=== PATIENT | male | born 1955 | race Caucasian/White ===

== ENCOUNTER 2020-04-19 17:25 | Emergency (ER) | payer SELFPAY ==
[2020-04-19 17:42] VITALS: BP 117/72; PULSE 73; TEMP 97.6; BMI 27.4
--- NOTE | 2020-04-19 18:12 | PDOC ---
History of Present Illness - General Chief Complaint: Alcohol intoxication Stated Complaint: DETOX Time Seen by Provider: 04/19/20 18:12 Past History - Medical History Allergies/Adverse Reactions: Allergies Allergy/AdvReac Type Severity Reaction Status Date / Time No Known Allergies Allergy Verified 04/19/20 17:37 - Psycho-Social/Smoking History Smoking History: Never smoked Have you smoked in the past 12 months: No - Substance Abuse Hx (Audit-C & DAST Scrn) How often the patient has a drink containing alcohol: 4 0r more times/wk Number of drinks the patient has on a typical day: 3 or 4 How often the patient has six or more drinks on one occasion: Daily or almost daily Score: In Men: 4 or > Positive; In Women: 3 or > Positive: 9 Screen Result (Pos requires Nsg. Audit-10AR): Positive In the last yr the pt used illegal drug/Rx for NonMed reason: No Score: Yes response is considered Positive: 0 Screen Result (Positive result requires Nsg. DAST-10): Negative *Physical Exam - Vital Signs Last Vital Signs Temp Pulse Resp BP Pulse Ox 97.6 F 73 16 117/72 100 04/19/20 17:38 04/19/20 17:38 04/19/20 17:38 04/19/20 17:38 04/19/20 17:38 ED Treatment Course - LABORATORY CBC & Chemistry Diagram: 04/19/20 18:50 04/19/20 18:50 Medical Decision Making - Medical Decision Making 04/19/20 18:35 HPI: 65yo M hx alcohol abuse, no other PMH (but hasn't been to a doctor in years), presents from home requesting detox from alcohol. Endorses 3 pints vodka a day since August 2019, last drink wednesday. Since then, endorses worsening anxiety, tremors, difficult sleeping, depression, nausea with morning emesis, tingling skin, mild headache in mornings. Denies SI/HI/AVH, seizure, smoking, drug use. Pt in USOH prior to withdrawal. Denies F/C, CP, SOB, cough, sick contacts, travel, leg swelling or pain, abdominal pain, D/C, blood in stool or vomit. Endorses frequent falls 2/2 etoh abuse, last 5 days ago hit head no LOC. Last withdrawal/detox last year, took librium at that time, denies hx withdrawal seizures. PCP - none ROS: Constitutional: Positive for tremors. Negative for chills, fever, fatigue, diaphoresis. HENT: Negative for sore throat, rhinorrhea, congestion. Eyes: Negative for visual disturbance. Respiratory: Negative for shortness of breath, cough, and wheezing. Cardiovascular: Negative for chest pain, palpitations, and leg swelling. Gastrointestinal: Positive for nausea and vomiting. Negative for abdominal pain, blood in stool, constipation, diarrhea, nausea. Genitourinary: Negative for dysuria, flank pain, and hematuria. Musculoskeletal: Negative for myalgias, back pain, and neck pain. Skin: Negative for rash. Neurological: Positive for headache and tingling skin and difficulty sleeping. Negative for light-headedness, dizziness, vertigo, syncope, weakness, numbness. Psychiatric/Behavioral: Positive for anxiety, depression, and alcohol abuse/withdrawal. Negative for SI/HI/AVH or confusion. PE: Gen: Alert, NAD, anxious-appearing, mild tremors at rest HEENT: PERRL, EOMI, MMM, NC, healing bruise to R forehead, no tongue fasciculations. No conjunctival pallor. Sclera are non-icteric. Oropharynx is clear. CV: Regular rate and rhythm. No murmurs, rubs, or gallops. PULM: No resp distress. CTAB, no wheezes, rales, or rhonchi. ABD: soft, NT/ND, no rebound tenderness or guarding, no CVA tenderness. BACK: No TTP of c/t/l-spine. No step-offs or deformities. MSK: No bony deformities. 2+ pulses in all extremities. NEURO: AAOx3. PERRL. No gross CN deficits. Strength and sensation grossly intact throughout. EXTREMITIES: No cyanosis. No clubbing. No edema. No calf tenderness. PSYCH: Normal mood and thought pattern. SKIN: Warm and dry, barely perceptible sweating to face. Normal capillary refill. No rashes. No jaundice. MDM: 65yo M hx alcohol abuse, no other PMH (but hasn't been to a doctor in years), presents from home requesting detox from alcohol. Hemodynamically stable, afebrile, neurologically intact. Ddx: history and exam c/w withdrawal from alcohol. Also consider intox, infection, metabolic derangement, anemia, or ICH due trauma. CIWA score 15 -Librium 50 -cbc,cmp,alcohol -CTH -IVF and banana bag -Dispo: pending w/u, likely d/c to [facility] detox 04/19/20 20:56 Labs reviewed. No concerning findings. Pt feels better. 04/19/20 21:15 CTH negative for acute pathology Safe for d/c to detox facility with PCP f/u. Return precautions given. Pt understands all discharge instructions and all questions were answered. Discharge - Discharge Information Problems reviewed: Yes Clinical Impression/Diagnosis: Alcohol withdrawal Condition: Improved Disposition: HOME - Admission No - Follow up/Referral Referrals: [facility] [place] [facility] [place] [Provider Group] - Patient Discharge Instructions Patient Printed Discharge Instructions: DI for Alcohol Use Disorder, DI for Drug or Alcohol Withdrawal Additional Instructions: You have been seen in the Emergency Department for your alcohol withdrawal. You feel better with Librium. Your physical exam, labs, and CT scan of your head noemí w no signs of an emergent condition at this time. You are safe to go to a detox facility. Good luck on your recovery! Make sure to follow-up with your primary care doctor within 1 week. We have given you a referral to our primary care clinic - give them a call to set up an appointment. Return to the ED immediately if you experience seizures, chest pain, difficulty breathing, passing out, or any other new or worsening symptom. - Post Discharge Activity
[2020-04-19] MEDS ORDERED: chlordiazePOXIDE HCL 25 MG CAPSULE PO ONE (18:33)
[2020-04-19] MEDS ORDERED: chlordiazePOXIDE HCL 25 MG CAPSULE ONE (19:03)
[2020-04-19] MEDS ORDERED: FOLIC ACID INJECTION - 1 MG, THIAMINE HCL 100 MG, MULTIVIT INJECTION ADULT 10 ML in SOD... IVPB ONE (19:07)
[2020-04-19] MEDS ORDERED: SODIUM CHLORIDE 0.9% 500 ML INFUS.BAG IV ONE (19:07)
--- NOTE | 2020-04-19 19:09 | PDOC ---
Documentation entered by Holly Mendenhall SCRIBE, acting as scribe for Tequila Mondragon MD. Tequila Mondragon MD: This documentation has been prepared by the Abdirashid murphy Xhesika, SCRIBE, under my direction and personally reviewed by me in its entirety. I confirm that the documentation accurately reflects all work, treatment, procedures, and medical decision making performed by me. Attending Attestation - Resident Resident Name: Latricia López - HPI HPI: 04/19/20 18:37 The patient is a 65y/o M with a pmh of alcohol abuse (3 pints vodka a day since August) who presents to the ED for alcohol intoxication. Pt reports tremors, difficulty sleeping, nausea a/w emesis and mild headache this morning. Pt states his last drink was Wednesday (5 days ago). Pt reports he had a fall 5 days ago secondary to etoh abuse. Pt denies CP, sob, fevers, chills. Denies URI symptoms. Allergies: NKDA - Physicial Exam PE: 04/19/20 19:06 Agree with resident exam. Patient is alert and in no acute distress. Calm and cooperative, speaking in complete sentences. No diaphoresis or tachycardia. + mild tremor. - Medical Decision Making 04/19/20 19:07 Pt presents to the ED complaining of mild alcohol withdrawal. Will check labs and treat with libruim. Will likely discharge to [facility]. Discharge - Discharge Information Problems reviewed: Yes Clinical Impression/Diagnosis: Alcohol withdrawal Condition: Improved Disposition: HOME - Follow up/Referral [place] [facility] [place] Group] - Patient Discharge Instructions Patient Printed Discharge Instructions: DI for Alcohol Use Disorder, DI for Drug or Alcohol Withdrawal Additional Instructions: You have been seen in the Emergency Department for your alcohol withdrawal. You feel better with Librium. Your physical exam, labs, and CT scan of your head show no signs of an emergent condition at this time. You are safe to go to a detox facility. Good luck on your recovery! Make sure to follow-up with your primary care doctor within 1 week. We have given you a referral to our primary care clinic - give them a call to set up an appointment. Return to the ED immediately if you experience seizures, chest pain, difficulty breathing, passing out, or any other new or worsening symptom. - Post Discharge Activity
[2020-04-19 20:00] LABS: BASO % 2.8 % (0-2.0); EOS % 3.2 % (0-4.5); HEMATOCRIT 36.9 % (35.4-49); HEMOGLOBIN 12.3 GM/dL (11.7-16.9); LYMPH % 27.5 % (8-40); MCH 33.7 pg (25.7-33.7); MCHC 33.3 g/dl (32.0-35.9); MEAN CELL VOLUME 101.3 fl (80-96); MEAN PLT VOLUME 9.5 fl (7.5-11.1); MONO % 19.1 % (3.8-10.2); NEUT % 47.4 % (42.8-82.8); PLATELET COUNT 228 K/MM3 (134-434); RBC 3.65 M/mm3 (4.00-5.60); RDW 15.8 % (11.9-15.9); WHITE BLOOD COUNT 4.1 K/mm3 (4.0-10.0)
--- NOTE | 2020-04-19 20:24 | PDOC ---
*Physical Exam - Vital Signs Last Vital Signs Temp Pulse Resp BP Pulse Ox 97.6 F 73 16 117/72 100 04/19/20 17:38 04/19/20 17:38 04/19/20 17:38 04/19/20 17:38 04/19/20 17:38 ED Treatment Course - LABORATORY CBC & Chemistry Diagram: 04/19/20 18:50 04/19/20 18:50 - ADDITIONAL ORDERS Additional order review: 04/19/20 18:50 RBC 3.65 L MCV 101.3 H MCHC 33.3 RDW 15.8 MPV 9.5 Neutrophils % 47.4 Lymphocytes % 27.5 Monocytes % 19.1 H Eosinophils % 3.2 Basophils % 2.8 H - Medications Given in the ED: ED Medications Discontinued Medications Generic Name Dose Route Start Last Admin Trade Name Freq PRN Reason Stop Dose Admin Chlordiazepoxide HCl 50 mg 04/19/20 18:33 04/19/20 19:00 Librium - PO 04/19/20 18:34 50 mg ONCE ONE Administration Sodium Chloride 1,000 ml 04/19/20 19:07 04/19/20 19:37 Normal Saline - IV 04/19/20 19:08 1,000 ml ONCE ONE Administration Medical Decision Making - Medical Decision Making 04/19/20 20:24 Pt received on signout. CBC lkabs normal and chem pending Pt is awaiting CT head If normal, he has been accepted to a male detox bed in [facility]. 04/19/20 21:12 Labs normal; CT head no acute findings. Pt will go to [facility] with security Discharge - Discharge Information Problems reviewed: Yes Clinical Impression/Diagnosis: Alcohol withdrawal Condition: Improved Disposition: HOME - Follow up/Referral Referrals: [facility] [place] Internal Med at [place] [Provider Group] - Patient Discharge Instructions Patient Printed Discharge Instructions: DI for Alcohol Use Disorder, DI for Drug or Alcohol Withdrawal Additional Instructions: You have been seen in the Emergency Department for your alcohol withdrawal. You feel better with Librium. Your physical exam, labs, and CT scan of your head show no signs of an emergent condition at this time. You are safe to go to a detox facility. Good luck on your recovery! Make sure to follow-up with your primary care doctor within 1 week. We have given you a referral to our primary care clinic - give them a call to set up an appointment. Return to the ED immediately if you experience seizures, chest pain, difficulty breathing, passing out, or any other new or worsening symptom. - Post Discharge Activity
[2020-04-19 20:42] LABS: ALBUMIN 3.3 g/dl (3.4-5.0); ALK PHOS 83 U/L (45-117); ANION GAP 4 MMOL/L (8-16); BILIRUBIN,TOTAL 0.6 mg/dL (0.2-1); BLOOD UREA NITROGEN 12.6 mg/dL (7-18); CALCIUM 8.7 mg/dL (8.5-10.1); CHLORIDE 107 mmol/L (98-107); CO2 30 mmol/L (21-32); CREATININE 0.7 mg/dL (0.55-1.3); GLUCOSE,RANDOM 83 mg/dL (74-106); POTASSIUM 5.4 mmol/L (3.5-5.1); SGOT/AST 110 U/L (15-37); SGPT/ALT 130 U/L (13-61); SODIUM 141 mmol/L (136-145); TOT PROT 6.8 g/dl (6.4-8.2)
== END 2020-04-19 21:33 | disposition home or self-care (01) ==
LOC: JER 17:25
DX: F10.230 Alcohol dependence with withdrawal, uncomplicated (principal)
CPT/HCPCS: 36415; 70450-TC; 80053; 80307; 85025; 99285-25

== ENCOUNTER 2020-04-19 21:45 | Inpatient (IN) | payer SELFPAY ==
--- OUTSIDE RECORDS SUMMARY | 2020-04-19 21:51 | XMS ---
:1955 Author Organization [facility] Care Team Providers Name Role Phone MIRTA RODRIGUEZ MD Unavailable Unavailable Bansal, R PNP Unavailable Unavailable Bansal, R PNP Unavailable Unavailable Bansal, R PNP Unavailable Unavailable Bansal, R PNP Unavailable Unavailable Bansal, R PNP Unavailable Unavailable Re-disclosure Warning The records that you are about to access may contain information from federally- assisted alcohol or drug abuse programs. If such information is present, then the following federally mandated warning applies: This information has been disclosed to you from records protected by federal confidentiality rules (42 CFR part 2). The federal rules prohibit you from making any further disclosure of this information unless further disclosure is expressly permitted by the written consent of the person to whom it pertains or as otherwise permitted by 42 CFR part 2. A general authorization for the release of medical or other information is NOT sufficient for this purpose. The Federal rules restrict any use of the information to criminally investigate or prosecute any alcohol or drug abuse patient.The records that you are about to access may contain highly sensitive health information, the redisclosure of which is protected by Article 27-F of the [facility] Public Health law. If you continue you may haveaccess to information: Regarding HIV / AIDS; Provided by facilities licensed or operated by the [facility] Office of Mental Health; or Provided by the [facility] Office for People With Developmental Disabilities. If such information is present, then the following [facility] mandated warning applies: This information has been disclosed to you from confidential records which are protected by state law. State law prohibits you from making any further disclosure of this information without the specific written consent of the person to whom it pertains, or as otherwise permitted by law. Any unauthorized further disclosure in violation of state law may result in a fine or penitentiary sentence or both. A general authorization for the release of medical or other information is NOT sufficient authorization for further disclosure. Encounters Encounter Providers Location Date Indications Data Source(s ) Outpatient Attender: [facility]: [facility] Bansal PNP EDT Insurance Providers Payer name Policy type Policy ID Covered Covered libertarian's Policy P nina / Coverage libertarian ID relationship to [employer] Inf ormation type galvez SELF PAY SP INSURANCE SELF PAY 00 Self 00 SELF PAY 00 Self 00 REDUCTION
--- NOTE | 2020-04-19 22:11 | BHS.RME ---
Substance Use & Tx History - Substance Use History Alcohol Substance amount: 2-3 pints vodka Frequency of use: Daily Substance route: Oral Date of Last Use: 04/14/20 - Last Treatment Date of last treatment: alcohol withdrawal Treatment type: Medical Where was last treatment: ER (Seen in [facility] ED today.) Physical/Psych/Mental Status - Behavior General Behavior: Increased activity (restlessness, agitation) - Cooperativeness Cooperativeness: Cooperative - Physical Health Problems Is patient presently having any pain?: No Does patient presently have any injuries (include location): No Does patient currently have a fever: No CIWA Nausea/Vomitin-Mild Nausea/No Vomiting Muscle Tremors: 4-Moderate,w/Arms Extend Anxiety: 3 Agitation: 1-Slight > Activity Paroxysmal Sweats: 3 Orientation: 0-Oriented Tacttile Disturbances: 0-None Auditory Disturbances: 0-None Visual Disturbances: 0-None Headache: 0-None Present CIWA-Ar Total Score: 12
--- NOTE | 2020-04-19 22:26 | HP ---
"CIWA Score Nausea/Vomitin-Mild Nausea/No Vomiting (Medicated in ED w/ Libruim, earlier today.) Muscle Tremors: 4-Moderate,w/Arms Extend Anxiety: 3 Agitation: 1-Slight > Activity Paroxysmal Sweats: 3 Orientation: 0-Oriented Tacttile Disturbances: 0-None Auditory Disturbances: 0-None Visual Disturbances: 0-None Headache: 0-None Present CIWA-Ar Total Score: 12 - Admission Criteria OASAS Guidelines: Admission for Medically Managed Detox: Requires at least one of the followin. CIWA greater than 12 2. Seizures within the past 24 hours 3. Delirium tremens within the past 24 hours 4. Hallucinations within the past 24 hours 5. Acute intervention needed for co occurring medical disorder 6. Acute intervention needed for co occurring psychiatric disorder 7. Severe withdrawal that cannot be handled at a lower level of care (continued vomiting, continued diarrhea, abnormal vital signs) requiring intravenous medication and/or fluids 8. Patient presents the following: CIWA greater than 12 Admission Criteria Met: Admission criteria met Admitting History and Physical - Smoking History Smoking history: Never smoked Have you smoked in the past 12 months: No Admission ROS S - HPI Chief Complaint: i NEED TO STOP DRINKING AND FEEL BETTER. Allergies/Adverse Reactions: Allergies Allergy/AdvReac Type Severity Reaction Status Date / Time No Known Allergies Allergy Verified 04/19/20 17:37 History of Present Illness: 65 yo w/ continued alcohol withdrawal symptoms referred [facility] ED. Patient was seen in ED for alcohol withdrawals and given Libruim while there. SLICK: 0.0 UTox: +BZO History/[facility] ED: REVIEWED: HPI: 65yo M hx alcohol abuse, no other PMH (but hasn't been to a doctor in years), presents from home requesting detox from alcohol. Endorses 3 pints vodka a day since August 2019, last drink wednesday. Since then, endorses worsening anxiety, tremors, difficult sleeping, depression, nausea with morning emesis, tingling skin, mild headache in mornings. Denies SI/HI/AVH, seizure, smoking, drug use. Pt in USOH prior to withdrawal. Denies F/C, CP, SOB, cough, sick contacts, travel, leg swelling or pain, abdominal pain, D/C, blood in stool or vomit. Endorses frequent falls 2/2 etoh abuse, last 5 days ago hit head no LOC. Last withdrawal/detox last year, took librium at that time, denies hx withdrawal seizures. ROS: Constitutional: Positive for tremors. Negative for chills, fever, fatigue, diaphoresis. HENT: Negative for sore throat, rhinorrhea, congestion. Eyes: Negative for visual disturbance. Respiratory: Negative for shortness of breath, cough, and wheezing. Cardiovascular: Negative for chest pain, palpitations, and leg swelling. Gastrointestinal: Positive for nausea and vomiting. Negative for abdominal pain, blood in stool, constipation, diarrhea, nausea. Genitourinary: Negative for dysuria, flank pain, and hematuria. Musculoskeletal: Negative for myalgias, back pain, and neck pain. Skin: Negative for rash. Neurological: Positive for headache and tingling skin and difficulty sleeping. Negative for light-headedness, dizziness, vertigo, syncope, weakness, numbness. Psychiatric/Behavioral: Positive for anxiety, depression, and alcohol abuse/withdrawal. Negative for SI/HI/AVH or confusion. Labs normal; CT head no acute findings. Labs show elevated LFT's. Will order AMM in a.m. Lives w/ sister. Search Terms: Gasper Adam, 1955 Search Date: 04/19/2020 22:42:52 PM The Drug Utilization Report below displays all of the controlled substance prescriptions, if any, that your patient has filled in the last twelve months. The information displayed on this report is compiled from pharmacy submissions to the Department, and accurately reflects the information as submitted by the pharmacies. This report was requested by: Chantel Williamson | Reference #: [id number] There are no results for the search terms that you entered. Exam Limitations: No Limitations - Ebola screening Have you traveled outside of the country in the last 21 days: No Have you had contact with anyone from an Ebola affected area: No Have you been sick,other than usual withdrawal symptoms: No Do you have a fever: No - Review of Systems Constitutional: See HPI, Diaphoresis EENT: reports: See HPI Respiratory: reports: See HPI Cardiac: reports: See HPI GI: reports: See HPI : reports: See HPI Musculoskeletal: reports: See HPI Integumentary: reports: See HPI Neuro: reports: See HPI Endocrine: reports: See HPI Hematology: reports: See HPI Psychiatric: reports: Mood/Affect Appropiate, Orientated x3, Agitated, Anxious Patient History - Patient Medical History Hx Chronic Obstructive Pulmonary Disease (COPD): No - PPD History Previous Implant?: No Implanted On Prior [facility] Admission?: No PPD to be Administered?: Yes - Smoking Cessation Smoking history: Never smoked Have you smoked in the past 12 months: No - Substance & Tx. History Hx Alcohol Use: Yes Hx Substance Use: Yes Substance Use Type: Alcohol Hx Substance Use Treatment: Yes (1 detox, ER visits) Admission Physical Exam [facility] - Physical General Appearance: Yes: Nourished, Mild Distress, Tremorous, Sweating, Anxious HEENTM: Yes: Hearing grossly Normal, Normal ENT Inspection, Normocephalic, Normal Voice, Pharynx Normal Respiratory: Yes: Lungs Clear, Normal Breath Sounds, No Respiratory Distress Neck: Yes: No masses,lesions,Nodules, Supple Breast: Yes: Breast Exam Deferred Cardiology: Yes: Regular Rhythm, Regular Rate Abdominal: Yes: Non Tender, Flat, Soft, Increased Bowel Sounds Genitourinary: Yes: Within Normal Limits Back: Yes: Normal Inspection Musculoskeletal: Yes: full range of Motion, Gait Steady (but slow) Extremities: Yes: Normal Capillary Refill, Tremors Neurological: Yes: Fully Oriented, Alert, Motor Strength 5/5 Integumentary: Yes: Normal Color, Warm Lymphatic: Yes: Within Normal Limits - Diagnostic (1) Alcohol dependence with withdrawal, uncomplicated Current Visit: Yes Status: Acute (2) Elevated LFTs Current Visit: Yes Status: Chronic Cleared for Admission [facility] - Detox or Rehab [facility] Level of Care: Medically Managed Detox Regimen/Protocol: Ativan Claeared for Rehab Admission: No Breathalyzer - Breathalyzer Breathalyzer: 0 Urine Drug Screen - Control Is test valid?: Yes - Results Drug screen NEGATIVE: No Urine drug screen results: BZO-Benzodiazepines Inpatient Rehab Admission - Rehab Decision to Admit Inpatient rehab admission?: No"
[2020-04-19 22:29] VITALS: BMI 25.1
[2020-04-19] MEDS ORDERED: ONDANSETRON *ODT* 4 MG TABLET SL PRN (22:50)
[2020-04-19] MEDS ORDERED: MENTHOL/PHENOL 1 EACH UD MM PRN (22:50)
[2020-04-19] MEDS ORDERED: MAGNESIUM CITRATE 300 ML BOTTLE PO PRN (22:50)
[2020-04-19] MEDS ORDERED: BISMUTH SUBSALICYLATE 524 MG/30 ML UD PO PRN (22:50)
[2020-04-19] MEDS ORDERED: IBUPROFEN 400 MG TABLET (FP) PO PRN (22:50)
[2020-04-19] MEDS ORDERED: LORazepam 1 MG TABLET PO PRN (22:50)
[2020-04-19] MEDS ORDERED: METHOCARBAMOL 500 MG TABLET PO PRN (22:50)
[2020-04-19] MEDS ORDERED: ACETAMINOPHEN 325 MG TABLET (FP) PO PRN ×2 (22:50)
[2020-04-19] MEDS ORDERED: MAG HYDROX/AL HYDROX/SIMETH 30 ML UNIT-DOSE CUP PO PRN (22:50)
[2020-04-19] MEDS ORDERED: NICOTINE POLACRILEX 2 MG GUM BUC PRN (22:50)
[2020-04-19] MEDS ORDERED: MAGNESIUM HYDROX 2400MG/30ML ORAL SUSPENSION 30 ML CUP PO PRN (22:50)
--- OUTSIDE RECORDS SUMMARY | 2020-04-19 23:14 | XMS ---
[...] is protected by Article 27-F of the [facility] Public Health law. If you continue you may haveaccess to information: Regarding HIV / AIDS; Provided by facilities licensed or operated by the [facility] Office of Mental Health; or Provided by the [facility] Office for People With Developmental Disabilities. If such information is present, then the following [facility] mandated warning applies: This information has been [...] law may result in a fine or retirement sentence or both. A general authorization for the release of medical or other information is NOT sufficient authorization for further disclosure. Encounters Encounter Providers Location Date Indications Data Source(s ) Outpatient Attender: MIRTA BARFIELD [facility]17/[address] [facility] [address] [facility]: [facility]y Bansal PNP EDT Insurance Providers Payer name Policy type Policy ID Covered Covered green party's Policy P nina / Coverage green party ID relationship to [employer] Inf ormation type galvez SELF PAY SP INSURANCE SELF PAY 00 Self 00 SELF PAY 00 Self 00 REDUCTION
[2020-04-19] MEDS: LORazepam 2 MG TABLET PO SCH (23:39)
[2020-04-20] MEDS: LORazepam 2 MG TABLET PO SCH ×4 (07:34→22:08)
[2020-04-20] MEDS: PRENATAL VITAMINS W/ FOLIC ACID TABLET (FP) PO SCH (10:24)
--- NOTE | 2020-04-20 16:34 | PN ---
[facility] CIWA - CIWA Score Nausea/Vomitin-No Nausea/No Vomiting Muscle Tremors: 3 Anxiety: 4-Mod. Anxious/Guarded Agitation: 2 Paroxysmal Sweats: 2 Orientation: 0-Oriented Tacttile Disturbances: 1-Very Mild Itch/Numbness Auditory Disturbances: 0-None Visual Disturbances: 0-None Headache: 0-None Present CIWA-Ar Total Score: 12 BHS Progress Note (SOAP) Subjective: Anxious, Tremors, Fatigue, Sweating. Objective: Patient A & O X 3, Observed Ambulating on Detox Unit Unassisted. In No Acute Distress. 04/20/20 16:31 Vital Signs Temperature 98.4 F 04/20/20 12:35 Pulse Rate 77 04/20/20 12:35 Respiratory Rate 18 04/20/20 12:35 Blood Pressure 111/66 04/20/20 12:35 O2 Sat by Pulse Oximetry (%) 98 04/20/20 12:35 Laboratory Tests 04/20/20 04/20/20 07:30 07:30 Ammonia 27.10 Syphilis Serology Non-reactive Admission Lab Results noted. 04/20/20 16:33 Assessment: 04/20/20 16:33 WITHDRAWAL SYMPTOMS. ELEVATED ALT LEVEL. ELEVATED AST LEVEL. Plan: Continue Detox. Increase Daily Oral Water Intake.
[2020-04-20] MEDS: MELATONIN 5 MG TABLETS PO SCH (22:08)
[2020-04-20] MEDS: THIAMINE HCL 100 MG TABLET (FP) PO SCH (22:08)
[2020-04-21] MEDS: LORazepam 1 MG TABLET PO SCH ×4 (05:23→23:19)
[2020-04-21] MEDS: PRENATAL VITAMINS W/ FOLIC ACID TABLET (FP) PO SCH (10:15)
--- NOTE | 2020-04-21 14:17 | PN ---
S CIWA - CIWA Score Nausea/Vomitin-Mild Nausea/No Vomiting Muscle Tremors: 2 Anxiety: 2 Agitation: 1-Slight > Activity Paroxysmal Sweats: 2 Orientation: 0-Oriented Tacttile Disturbances: 0-None Auditory Disturbances: 0-None Visual Disturbances: 0-None Headache: 0-None Present CIWA-Ar Total Score: 8 BHS Progress Note (SOAP) Subjective: Feels ok Objective: 04/21/20 14:13 Last Vital Signs Temp Pulse Resp BP Pulse Ox 97.5 F L 74 18 120/69 100 04/21/20 12:47 04/21/20 12:47 04/21/20 12:47 04/21/20 12:47 04/21/20 12:47 Laboratory Tests 04/19/20 04/20/20 04/20/20 11:20 07:30 07:30 Ammonia 27.10 Syphilis Serology Non-reactive COVID-19 (BHUMIKA) Not detected Labs reviewed: K 5.4 (high), AST/ALT 110/130 Assessment: 04/21/20 14:34 Withdrawal sxs Noted with hyperkalemia and transaminitis Plan: Continue detox Encourage PO water intake Hyperkalemia: repeat serum K level Transaminitis: repeat AST, ALT
--- NOTE | 2020-04-21 21:42 | EKG ---
Test Reason : Blood Pressure : / mmHG Vent. Rate : 051 BPM Atrial Rate : 051 BPM P-R Int : 148 ms QRS Dur : 090 ms QT Int : 466 ms P-R-T Axes : 067 014 035 degrees QTc Int : 429 ms SINUS BRADYCARDIA OTHERWISE NORMAL ECG NO PREVIOUS ECGS AVAILABLE Confirmed by DANE HOPE MD ([id number]) on 04/21/2020 9:41:34 PM Referred By: Luke Pope Confirmed By:DANE HOPE MD
[2020-04-21] MEDS: THIAMINE HCL 100 MG TABLET (FP) PO SCH (23:15)
[2020-04-21] MEDS: MELATONIN 5 MG TABLETS PO SCH (23:15)
[2020-04-22] MEDS ORDERED: LORazepam 0.5 MG TABLET PO PRN
[2020-04-22] MEDS: LORazepam 0.5 MG TABLET PO SCH ×4 (06:13→22:32)
[2020-04-22] MEDS: PRENATAL VITAMINS W/ FOLIC ACID TABLET (FP) PO SCH (10:06)
[2020-04-22 11:03] LABS: POTASSIUM 3.9 mmol/L (3.5-5.1)
--- NOTE | 2020-04-22 11:47 | PN ---
S CIWA - CIWA Score Nausea/Vomitin-Mild Nausea/No Vomiting Muscle Tremors: 1-None Visible, but [place] Anxiety: 2 Agitation: 2 Paroxysmal Sweats: No Perspiration Orientation: 0-Oriented Tacttile Disturbances: 0-None Auditory Disturbances: 0-None Visual Disturbances: 0-None Headache: 1-Very Mild CIWA-Ar Total Score: 7 S Progress Note (SOAP) Subjective: alert,irritable,anxious,interrupted sleep,aching pain,ambulation on the unit Objective: 04/22/20 11:40 Vital Signs Temperature 98.0 F 04/22/20 09:15 Pulse Rate 98 H 04/22/20 09:15 Respiratory Rate 18 04/22/20 09:15 Blood Pressure 107/73 04/22/20 09:15 O2 Sat by Pulse Oximetry (%) 100 04/22/20 09:15 Assessment: 04/22/20 11:47 withdrawal symptom Plan: continue detox ativan regimen,discharge in am
[2020-04-22] MEDS: THIAMINE HCL 100 MG TABLET (FP) PO SCH (22:32)
[2020-04-22] MEDS: MELATONIN 5 MG TABLETS PO SCH (22:32)
[2020-04-23] MEDS ORDERED: LORazepam 0.5 MG TABLET PO ONE (05:00)
--- NOTE | 2020-04-23 09:48 | PN ---
[facility] CIWA - CIWA Score Nausea/Vomitin-No Nausea/No Vomiting Muscle Tremors: None Anxiety: 1-Mildly Anxious Agitation: 0-Normal Activity Paroxysmal Sweats: No Perspiration Orientation: 0-Oriented Tacttile Disturbances: 0-None Auditory Disturbances: 0-None Visual Disturbances: 0-None Headache: 0-None Present CIWA-Ar Total Score: 1 BHS Progress Note (SOAP) Subjective: alert,no complaint Objective: 04/23/20 10:19 Vital Signs Temperature 98.7 F 04/23/20 09:08 Pulse Rate 80 04/23/20 09:08 Respiratory Rate 19 04/23/20 09:08 Blood Pressure 122/69 04/23/20 09:08 O2 Sat by Pulse Oximetry (%) 100 04/23/20 09:08 Assessment: 04/23/20 10:20 detox completed,no withdrawal symptom Plan: stable for discharge today,follow up with [facility]
--- NOTE | 2020-04-23 09:48 | DS ---
[facility] Detox Discharge Summary Admission Date: 04/19/20 Discharge Date: 04/23/20 - History Present History: Alcohol Dependence Additional Comments: alert,oriented x 3 ambulation on the unit lung clear on auscultation no abdominal pain no edema of legs stable for discharge detox completed,no withdrawal symptom follow up with rehab [facility] as arrangement total time discharge spending 35 minutes - Physical Exam Results Vital Signs: Vital Signs Temperature 99.6 F 04/23/20 05:28 Pulse Rate 70 04/23/20 05:28 Respiratory Rate 16 04/23/20 05:28 Blood Pressure 143/88 04/23/20 05:28 O2 Sat by Pulse Oximetry (%) 96 04/23/20 05:28 Pertinent Admission Physical Exam Findings: withdrawal signs and symptom Laboratory Last Values Potassium 3.9 mmol/L (3.5-5.1) 04/22/20 07:30 AST 53 U/L (15-37) H 04/22/20 07:30 ALT 107 U/L (13-61) H 04/22/20 07:30 Ammonia 27.10 umol/L (11-32) 04/20/20 07:30 Syphilis Serology Non-reactive (NONREACTIVE) 04/20/20 07:30 COVID-19 (BHUMIKA) Not detected (Not Detected) 04/19/20 11:20 Vital Signs Temperature 98.7 F 04/23/20 09:08 Pulse Rate 80 04/23/20 09:08 Respiratory Rate 19 04/23/20 09:08 Blood Pressure 122/69 04/23/20 09:08 O2 Sat by Pulse Oximetry (%) 100 04/23/20 09:08 - Treatment Hospital Course: Detox Protocol Followed, Detoxed Safely, Responded well, Discharged Condition Good, Rehab Referral Accepted Patient has Accepted a Rehab Referral to: [facility] - Medication Discharge Medications: Ambulatory Orders NK [No Known Home Medication] 04/19/20 - Diagnosis (1) Alcohol dependence with withdrawal, uncomplicated Current Visit: Yes Status: Acute - AMA Did Patient Leave Against Medical Advice: No
[2020-04-23 09:58] VITALS: BP 122/69; PULSE 80; TEMP 98.7
[2020-04-23] MEDS: PRENATAL VITAMINS W/ FOLIC ACID TABLET (FP) PO SCH (10:28)
== END 2020-04-23 11:30 | disposition home or self-care (01) | DRG 775 ==
LOC: YASAS 21:45 → Y6N 23:11
PROVIDERS: ADMIT Allergy & Immunology; ATTEND Allergy & Immunology
PROC: HZ2ZZZZ Detoxification Services for Substance Abuse Treatment (ICD-10-PCS; principal; 2020-04-19)
DX: F10.230 Alcohol dependence with withdrawal, uncomplicated (principal); E87.5 Hyperkalemia; R74.01 Elevation of levels of liver transaminase levels
CPT/HCPCS: 36415; 82140; 84132; 84450; 84460; 86780; 93005; 93010; U0003